=== PATIENT | female | born 1955 | race Hispanic/Latino ===

== ENCOUNTER → 2017-12-31 | Outpatient (CLI) | payer OTHER | END | disposition home or self-care (01) | LOC: RAH 10:19 | PROVIDERS: ATTEND Family Medicine | DX: Z12.31 Encounter for screening mammogram for malignant neoplasm of breast (principal) | CPT/HCPCS: 77067 ==

== ENCOUNTER 2018-09-05 19:12 | Emergency (ER) | payer OTHER ==
[2018-09-05] MEDS ORDERED: TETANUS/DIPHTHERIA TOXOID [ADULT] 0.5 ML VIAL IM ONE (20:00)
[2018-09-05] MEDS ORDERED: OCTYL 2-CYANOACRYLATE 1 EACH TP ONE (20:40)
== END 2018-09-05 20:41 | disposition home or self-care (01) ==
LOC: EDH 19:12
DX: S61.512A Laceration without foreign body of left wrist, initial encounter (principal); E78.5 Hyperlipidemia, unspecified; E07.9 Disorder of thyroid, unspecified; F41.9 Anxiety disorder, unspecified; Z98.51 Tubal ligation status; X58.XXXA Exposure to other specified factors, initial encounter; Y93.G3 Activity, cooking and baking; Y92.098 Other place in other non-institutional residence as the place of occurrence of the external cause; Y99.8 Other external cause status
CPT/HCPCS: 12001; 90471; 90714

== ENCOUNTER 2019-07-12 07:22 | Emergency (ER) | payer OTHER ==
[2019-07-12] MEDS ORDERED: ONDANSETRON HCL 4 MG/2 ML VIAL ONE (07:44)
[2019-07-12] MEDS ORDERED: MECLIZINE HCL 25 MG TABLET ONE (07:44)
== END 2019-07-12 09:18 | disposition home or self-care (01) ==
LOC: EDH 07:22
DX: H81.10 Benign paroxysmal vertigo, unspecified ear (principal); R11.0 Nausea; I10 Essential (primary) hypertension; E78.5 Hyperlipidemia, unspecified; Z87.891 Personal history of nicotine dependence
CPT/HCPCS: 93005; 96374; 99283; J2405

== ENCOUNTER → 2020-02-16 | Outpatient (CLI) | payer OTHER | END | disposition home or self-care (01) | LOC: RAH 14:07 | PROVIDERS: ATTEND Family Medicine | DX: Z12.31 Encounter for screening mammogram for malignant neoplasm of breast (principal) | CPT/HCPCS: 77067 ==

== ENCOUNTER → 2023-01-25 | Outpatient (CLI) | payer MEDICARE, OTHER | END | disposition home or self-care (01) | LOC: RAH 14:42 | PROVIDERS: ATTEND Family Medicine | DX: Z12.31 Encounter for screening mammogram for malignant neoplasm of breast (principal) | CPT/HCPCS: 77067 ==

== ENCOUNTER 2023-04-30 02:12 | Emergency (ER) | payer MEDICARE ==
[~2023-04-30] VITALS: Ht 154.9 cm; Wt 74.4 kg
[~2023-04-30 02:12] MED LIST: GUAI-487 PO; OMEP40CA21 PO
[2023-04-30] MEDS ORDERED: METOCLOPRAMIDE 10 MG TABLET PO ONE (03:00)
[2023-04-30 03:11] LABS: BASOPHILS # (AUTO) 0.03 K/uL (0.00-0.20); BASOPHILS % (AUTO) 0.4 % (0.0-5.0); EOSINOPHILS # (AUTO) 0.06 K/uL (0.00-0.70); EOSINOPHILS % (AUTO) 0.8 % (0.0-8.0); HEMATOCRIT 36.4 % (36-48); IMMATURE GRANULOCYTE ABSOLUTE 0.03 K/uL (0-1); LYMPHOCYTES % (AUTO) 26.7 % (21.0-51.0); MEAN CORPUSCULAR HEMOGLOBIN 29.7 pg (27.0-33.0); MEAN CORPUSCULAR HGB CONC 34.6 g/dL (32.0-36.0); MEAN CORPUSCULAR VOLUME 85.8 fL (79-99); MONOCYTES # (AUTO) 0.6 K/uL (0.1-1.0); NEUTROPHILS # (AUTO) 4.8 K/uL (1.8-7.7); NEUTROPHILS % (AUTO) 63.7 % (40.0-77.0); PLATELET COUNT (AUTO) 214 K/uL (130-400); RED BLOOD CELL COUNT(AUTO) 4.24 MIL/uL (4.00-5.50); RED CELL DISTRIBUTION WIDTH 13.6 % (11.0-15.5); WHITE BLOOD COUNT (AUTO) 7.5 K/uL (4.8-10.8)
[2023-04-30 03:23] LABS: APPEARANCE,URINE CLEAR (CLEAR); BILIRUBIN,URINE NEGATIVE (NEGATIVE); COLOR,URINE COLORLESS (YELLOW); GLUCOSE, URINE (UA) NEGATIVE (NEGATIVE); KETONES,URINE NEGATIVE (NEGATIVE); LEUKOCYTE ESTERASE ,URINE 75 Leu/uL (NEGATIVE); NITRATE,URINE NEGATIVE (NEGATIVE); OCCULT BLOOD,URINE NEGATIVE (NEGATIVE); PROTEIN,URINE NEGATIVE (NEGATIVE); UROBILINOGEN,URINE 0.2 mg/dL (0.2-1.0)
[2023-04-30 03:24] LABS: ALBUMIN 3.8 g/dL (3.5-5.0); BILIRUBIN,TOTAL 0.5 mg/dL (0.2-1.0); POTASSIUM 3.1 mmol/L (3.5-5.1); TOTAL PROTEIN, SERUM 7.3 g/dL (6.0-8.3)
[2023-04-30 03:30] LABS: ADD UA MICROSCOPIC YES
[2023-04-30 03:31] LABS: RBC,URINE 0-1 /HPF (0-1); SQUAMOUS EPITHELIAL CELL,UR RARE /HPF (0-2)
[2023-04-30 03:34] LABS: B-TYPE NATRIURETIC PEPTIDE 10 pg/mL (0-100)
[2023-04-30 03:44] VITALS: BP 130/71; PULSE 92; RESP 17; O2SAT 96
[2023-04-30] MEDS ORDERED: METO10TA41 PO (03:48)
== END 2023-04-30 03:59 | disposition home or self-care (01) ==
LOC: EDH 02:12
DX: K21.9 Gastro-esophageal reflux disease without esophagitis (principal); E03.9 Hypothyroidism, unspecified; E78.00 Pure hypercholesterolemia, unspecified; Z79.899 Other long term (current) drug therapy
CPT/HCPCS: 36415; 71045; 80053; 81001; 83880; 84484; 85025; 85378; 87088; 93005

== ENCOUNTER 2023-08-07 04:35 | Emergency (ER) | payer MEDICARE ==
[~2023-08-07] VITALS: Ht 157.5 cm; Wt 68.0 kg
[~2023-08-07 04:35] MED LIST changes: -GUAI-487 PO; +METO10TA41 PO
[2023-08-07] MEDS: ONDANSETRON 4MG INJ IVP ONE (04:48)
[2023-08-07] MEDS: LACTATED RINGERS 1000ML 1,000 ML IV ONE (04:48)
[2023-08-07 04:53] LABS: BASOPHILS # (AUTO) 0.04 K/uL (0.00-0.20); BASOPHILS % (AUTO) 0.6 % (0.0-5.0); EOSINOPHILS # (AUTO) 0.14 K/uL (0.00-0.70); HEMATOCRIT 41.4 % (36-48); IMMATURE GRANULOCYTE ABSOLUTE 0.02 K/uL (0-1); LYMPHOCYTES # (AUTO) 3.4 K/uL (1.0-4.8); MEAN CORPUSCULAR HEMOGLOBIN 29.8 pg (27.0-33.0); MEAN CORPUSCULAR VOLUME 85.2 fL (79-99); MONOCYTES # (AUTO) 0.5 K/uL (0.1-1.0); MONOCYTES % (AUTO) 6.8 % (3.0-13.0); NEUTROPHILS % (AUTO) 42.3 % (40.0-77.0); PLATELET COUNT (AUTO) 222 K/uL (130-400); RED BLOOD CELL COUNT(AUTO) 4.86 MIL/uL (4.00-5.50); RED CELL DISTRIBUTION WIDTH 13.2 % (11.0-15.5); WHITE BLOOD COUNT (AUTO) 7.2 K/uL (4.8-10.8)
[2023-08-07 05:02] LABS: CREATININE 0.9 mg/dL (0.5-1.0); POTASSIUM 3.7 mmol/L (3.5-5.1)
[2023-08-07 05:04] LABS: INR <= 0.93 (0.85-1.15); PROTHROMBIN TIME 10.5 SEC (9.6-11.6)
[2023-08-07 05:10] LABS: BILIRUBIN,TOTAL 0.5 mg/dL (0.2-1.0); MAGNESIUM 2.2 mg/dL (1.80-2.40); TOTAL PROTEIN, SERUM 7.3 g/dL (6.0-8.3)
[2023-08-07 05:11] LABS: B-TYPE NATRIURETIC PEPTIDE 16 pg/mL (0-100)
[2023-08-07 05:39] VITALS: BP 146/72; PULSE 77; RESP 20; O2SAT 96
[2023-08-07 05:45] LABS: APPEARANCE,URINE CLEAR (CLEAR); BILIRUBIN,URINE NEGATIVE (NEGATIVE); COLOR,URINE LIGHT-YELLOW (YELLOW); GLUCOSE, URINE (UA) NEGATIVE (NEGATIVE); KETONES,URINE NEGATIVE (NEGATIVE); LEUKOCYTE ESTERASE ,URINE 250 Leu/uL (NEGATIVE); NITRATE,URINE NEGATIVE (NEGATIVE); OCCULT BLOOD,URINE NEGATIVE (NEGATIVE); PH,URINE 6.5 (5.0-8.0); PROTEIN,URINE NEGATIVE (NEGATIVE); UROBILINOGEN,URINE 0.2 mg/dL (0.2-1.0)
[2023-08-07 06:02] LABS: ADD UA MICROSCOPIC YES
[2023-08-07 06:04] LABS: MUCUS,URINE MOD LPF (None Seen); SQUAMOUS EPITHELIAL CELL,UR RARE /HPF (0-2)
[2023-08-07] MEDS ORDERED: DICL20GE TP (06:10)
[2023-08-07] MEDS ORDERED: CEPH500B PO (06:10)
== END 2023-08-07 06:21 | disposition home or self-care (01) ==
LOC: EDH 04:35
DX: N39.0 Urinary tract infection, site not specified (principal); E78.00 Pure hypercholesterolemia, unspecified; E03.9 Hypothyroidism, unspecified; M19.90 Unspecified osteoarthritis, unspecified site; Z79.899 Other long term (current) drug therapy
CPT/HCPCS: 99285; 96374; 71045; 96361; 82550; 83735; 84484 ×2; 80053; 83880; 85025; 85610; 87088; 81001; 36415; 93005; J7120; J2405

== ENCOUNTER → 2024-10-04 | Outpatient (CLI) | payer OTHER ==
[~2024-10-04] MED LIST changes: +CEPH500B PO; +DICL20GE TP
== END | disposition home or self-care (01) ==
LOC: RAH 12:48
PROVIDERS: ATTEND Family Medicine
DX: Z12.31 Encounter for screening mammogram for malignant neoplasm of breast (principal)
CPT/HCPCS: 77067

== ENCOUNTER → 2024-10-25 | Outpatient (CLI) | payer OTHER ==
--- NOTE | 2024-10-26 13:16 | HMCIMG ---
Left BREAST ULTRASOUND: CLINICAL HISTORY: Follow-up for mammogram from 10/25/2024. Finding: Real-time examination of the [right/left] breast demonstrates mildly heterogeneous echotexture throughout the breast. The left breast at 10:00 there is a complex lesion seen measuring 0.8 x 0.4 x 0.7 cm the remaining left breast has no other solid or cystic mass seen. There is a benign-appearing left axillary lymph node measuring 0.5 x 0.3 x 0.6 cm the. IMPRESSION: Left breast at 10:00 there is a complex lesion seen measuring 0.8 x 0.4 x 0.7 cm which is amenable for ultrasound-guided biopsy for histological sampling. CATEGORY 4: SUSPICIOUS ABNORMALITY. BIOPSY SHOULD BE CONSIDERED Recommend monthly self breast exam as well as annual clinical examination. A negative x-ray should not delay biopsy if a dominant or clinically suspicious mass is present, since 8-10% of cancers are not identified by mammography. Dense breasts particularly, may obscure an underlying neoplasm. Some of these may be detected clinically and therefore, clinical examination is an essential part of breast evaluation. .
== END | disposition home or self-care (01) ==
LOC: RAH 13:53
PROVIDERS: ATTEND Family Medicine
DX: N64.89 Other specified disorders of breast (principal); R92.8 Other abnormal and inconclusive findings on diagnostic imaging of breast; R92.332 Mammographic heterogeneous density, left breast
CPT/HCPCS: 76641; 77065

== ENCOUNTER → 2024-11-20 | Outpatient (CLI) | payer OTHER, MEDICARE ==
--- NOTE | 2024-11-20 09:40 | NUR ---
ULTRASOUND GUIDED LEFT BREAST NODULE BX PROCEDURE PERFORMED BY DR. MOHAN ALEJANDRE. PUNCTURE SITE LEFT INNER BREAST AND PATIENT TOLERATED PROCEDURE WELL. SPECIMEN X3 COLLECTED AND SENT TO LAB. END OF PROCEDURE AT 0930. BIOPSY NEEDLE REMOVED AND BAND-AID DRESSING APPLIED- NO BLEEDING NOTED. ICE PACK APPLIED TO LEFT BREAST. DISCHARGE INSTRUCTIONS GIVEN TO PATIENT AND VERBALIZED UNDERSTANDING. DISCHARGED VIA AMBULATORY- ALERT AND ORIENTED WITH NO C/O PAIN. MAMMOGRAPHY TO FOLLOW TO VERIFY PLACEMENT OF TISSUE MARKER.
--- NOTE | 2024-11-20 10:38 | HMCIMG ---
PERCUTANEOUS ULTRASOUND-GUIDED BIOPSY OF left breast lesion at 10:00: With placement of a biopsy marker. CLINICAL HISTORY: This is a 69 [id number] female with left breast lesion at 10:00 measuring 0.8 x 0.44 x 1.0 cm. for ultrasound-guided biopsy. The risk and benefit was explained to the patient. The risks include bleeding and infection. The patient consented to the procedure. Procedure: Under ultrasound guidance left breast lesion at 4:00 was localized... After sterile prep and drape, 1% Xylocaine was used for local anesthetic. A 14-gauge Bard sheath was introduced into the lesion. Using a 14-gauge Bard gun a total of 3 core biopsy was obtained. The specimen was sent for histology and cell block. Postbiopsy a biopsy marker was placed. Patient tolerated procedure well. IMPRESSION: Placement of a left breast biopsy marker at 7:00 lesion. 1. PERCUTANEOUS ULTRASOUND-GUIDED BIOPSY OF left BREAST lesion at 10:00 WITH SPECIMENS SENT FOR HISTOLOGY AND CELL BLOCK. THE PATIENT TOLERATED PROCEDURE WELL. PATHOLOGY REPORT IS PENDING. 2. PATIENT IS TO HAVE A POST BIOPSY MARKER PLACEMENT UNILATERAL left BREAST MAMMOGRAM.
--- NOTE | 2024-11-20 11:13 | HMCIMG ---
DIGITAL left breast DIAGNOSTIC MAMMOGRAM Technique: The digital mammographic examination of left breast in craniocaudal, mediolateral oblique views along with CAD was obtained. History: This is a 69 years year-old female 4, para4 Ab0 . Patient has no family history of breast cancer. Patient patient had ultrasound-guided left breast lesion at 12:00. With placement of a biopsy. Marker Reference:Prior mammogram from 10/25/2024, 01/25/2023, 02/16/2020, 12/31/2017 and 03/20/2015 are available.. Breast composition: Breast composition C: The breasts are heterogeneously dense, which may obscure small masses. Finding: The digital mammographic examination of left breast in craniocaudal and mediolateral oblique view along with CAD demonstrates a biopsy marker in satisfactory position. Otherwise the mammogram is unchanged from prior study.. There is no evidence of any dendritic mass, cluster microcalcification or architectural distortion. The retromammary fat appears to be normal. IMPRESSION: Biopsy marker satisfactory position at 10:00. FINAL ASSESSMENT: Post-procedure Mammogram for Marker Placement. NOTE: IF A WORK-UP OF THIS PATIENT LEADS TO A BIOPSY, PLEASE FORWARD A COPY OF THE PATHOLOGY REPORT TO OUR OFFICE REQUIRED BY [employer] 03, 1994. A NEGATIVE MAMMOGRAM SHOULD NOT PRECLUDE BIOPSY OF A CLINICALLY PALPABLE SUSPICIOUS MASS, 10% OF BREAST CANCERS ARE MAMMOGRAPHICALLY OCCULT. THIS MAMMOGRAPHY FACILITY IS FULLY ACCREDITED BY THE [employer]OD AND [employer]UG [employer] (FDA). THANK YOU FOR THIS REFERRAL.
== END ==
LOC: RAH 08:15
PROVIDERS: ATTEND Family Medicine
DX: R92.8 Other abnormal and inconclusive findings on diagnostic imaging of breast (principal); N63.20 Unspecified lump in the left breast, unspecified quadrant; Z98.51 Tubal ligation status; Z79.899 Other long term (current) drug therapy
CPT/HCPCS: 19083; 77065; 88305; A4215 ×2